=== PATIENT | male | born 1970 | race Caucasian/White ===

== ENCOUNTER → 2020-07-31 13:15 | Outpatient (BNVA) | payer OTHER, SELFPAY | PROVIDERS: Family Provider Internal Medicine; PCP Internal Medicine; Visit Provider Family Medicine | DX: Z20.828 Contact with and (suspected) exposure to other viral communicable diseases (principal) | CPT/HCPCS: 87635 ==

== ENCOUNTER 2021-01-09 08:13 | Outpatient (CLI) | payer OTHER, SELFPAY ==
[2021-01-09 08:27] VITALS: BMI 29.8
--- NOTE | 2021-01-09 09:27 | ECG_ITS ---
[facility] Test Date: 2021-01-09 Pat Name: Niko Gordon Department: Room: Gender: Male Shipping Order Clerk: : 1970 Requested By: Maci Nathan Order Number: [id number] Reading MD: MACI NATHAN Interpretive Statements NAME OF STUDY: EXERCISE SESTAMIBI STRESS TEST INDICATION: Chest Pain, EXERCISE DATA: The patient was exercised by Jeronimo protocol. Baseline heart rate was 74 beats per minute. Baseline blood pressure was 137/93 millimeters of mercury. Target heart rate was 169 beats per minute. Maximum heart rate achieved was 166, which was 98 % of the target heart rate. Maximum blood pressure was 199/93 millimeters of mercury. Total exercise time was 8 minutes 24 seconds. Maximum METs achieved was 10.2, maximum VO2 was 35.7. The reason for ending the test was completion of the protocol. The patient complained of shortness of during the stress test, which then resolved at the end of the test. ELECTROCARDIOGRAM: BASELINE: Showed sinus rhythm, normal axis, no significant ST-T changes at the baseline noted. EXERCISE: At the peak exercise level, no significant ST-T changes suggestive of ischemia noted. RECOVERY: During the recovery period, heart rate dropped appropriately. No significant ST-T changes in the recovery suggestive of ischemia noted. CONCLUSION: 1. Exercise capacity good. 2. Heart rate response was appropriate. 3. Blood pressure response was hypertensive. 4. Symptoms not suggestive of ischemia. 5. Electrocardiogram portion of the stress test was not suggestive of ischemia. Electronically Signed On 01-10-2021 20:40:37 CDT by MACI NATHAN [email or web address]
--- NOTE | 2021-01-09 09:27 | NMCV_ITS ---
NM hair perf SPECT r/s* [id number] Niko Gordon Age: 50 Gender: M : 1970 Exam Date: 01/09/2021 09:54 Ordering Phys: Maci Dangelo MD ([email or web address]) Technologist: BRANDIN Saravia Exam Location: [facility] Indications: CHEST PAIN STRESS TEST [facility] IMAGE PROTOCOL Rest/Stress 1 Exercise Day Radiopharmaceutical Dose (mCi) Administration Site Administered by Rest: Tc-99m 10.8 IV BRANDIN Saravia Sestamibi Stress:Tc-99m 32.6 IV BRANDIN Lopez Sestamibi Rest: 09-Jan-2021 60 Discovery 630 Stress: 09-Jan-2021 15 Discovery 630 Radiopharmaceutical was injected at 93 % maximum heart rate. Images obtained in supine and prone position. SPECT RESULTS Technical Quality: Excellent Raw Data Analysis: Normal Image Corrections: No attenuation or motion correction applied Summed Stress Score: 0 Summed Rest Score: 0 Summed Difference Score: 0 PERFUSION FINDINGS SPECT images demonstrate homogeneous tracer distribution throughout the myocardium. FUNCTIONAL RESULTS (calculated via Gated SPECT) Stress Image LV EF (%): 84 Stress EDV (mL):73 TID: 0.76 Stress ESV (mL):12 Rest Image LV EF (%): 75 FUNCTIONAL FINDINGS: There is normal left ventricular systolic function. IMPRESSIONS Myocardial perfusion imaging is normal. Left ventricle function is hyperdynamic. EKG segment will be documented separately. Maci Dangelo MD (Electronically Signed) Final Date: 09 January 2021 19:49 S
[2021-01-09 10:46] VITALS: BP 157/85; PULSE 95
== END 2021-01-09 08:14 | disposition home or self-care (01) ==
LOC: CDL 08:14
PROVIDERS: PCP Internal Medicine; Visit Provider Internal Medicine Cardiovascular Disease
DX: R07.9 Chest pain, unspecified (principal); I10 Essential (primary) hypertension
CPT/HCPCS: 78452; 93017; A9500

== ENCOUNTER → 2022-10-12 14:13 | Outpatient (BNVA) | payer OTHER, SELFPAY | PROVIDERS: PCP Internal Medicine; Visit Provider Orthopaedic Surgery | DX: M67.912 Unspecified disorder of synovium and tendon, left shoulder (principal) | CPT/HCPCS: 99203 ==

== ENCOUNTER → 2023-11-02 14:32 | Outpatient (BNVA) | payer OTHER, SELFPAY | PROVIDERS: PCP Internal Medicine; Visit Provider Podiatrist Foot & Ankle Surgery | DX: B35.1 Tinea unguium (principal) | CPT/HCPCS: 99203 ==

== ENCOUNTER 2024-12-26 16:22 | Outpatient (CLI) | payer OTHER, SELFPAY | END 2024-12-26 16:23 | disposition home or self-care (01) | LOC: SPT 16:22 | PROVIDERS: PCP Internal Medicine; Visit Provider Physician Assistant | DX: Z46.89 Encounter for fitting and adjustment of other specified devices (principal); M25.532 Pain in left wrist | CPT/HCPCS: L3908 ==